=== PATIENT | female | born 1935 | race Hispanic/Latino ===

== ENCOUNTER 2020-03-20 00:01 | Inpatient (IN) | payer MEDICARE ==
[~2020-03-20] VITALS: Ht 144.8 cm; Wt 58.6 kg
[2020-03-20] VITALS (23 sets, daily range): BP systolic 120–152; BP diastolic 47–69
[2020-03-20] MEDS ORDERED: MORPHINE 2 MG SYG ONE ×2 (00:27→03:09)
[2020-03-20 01:34] LABS: BASOPHILS % (AUTO) 0.2 % (0.0-5.0); EOSINOPHILS % (AUTO) 0.1 % (0.0-8.0); HEMATOCRIT 33.1 % (36-48); MEAN CORPUSCULAR HEMOGLOBIN 29.8 pg (27.0-33.0); MEAN CORPUSCULAR HGB CONC 32.6 g/dL (32.0-36.0); MEAN CORPUSCULAR VOLUME 91.4 fL (79-99); MONOCYTES % (AUTO) 6.6 % (3.0-13.0); NEUTROPHILS % (AUTO) 87.5 % (40.0-77.0); PLATELET COUNT (AUTO) 159 K/uL (130-400); RED BLOOD CELL COUNT(AUTO) 3.62 MIL/uL (4.00-5.50); RED CELL DISTRIBUTION WIDTH 14.1 % (11.0-15.5); WHITE BLOOD COUNT (AUTO) 13.3 K/uL (4.8-10.8)
[2020-03-20 01:48] LABS: INR 1.03 (0.85-1.15)
[2020-03-20 01:50] LABS: PARTIAL THROMBOPLASTIN TIME 23.2 SEC (26.3-35.5)
[2020-03-20 01:53] LABS: CREATININE 0.7 mg/dL (0.5-1.5); POTASSIUM 4.6 mmol/L (3.5-5.1)
[2020-03-20 01:58] LABS: ALBUMIN 3.3 g/dL (3.5-5.0); BILIRUBIN,TOTAL 0.6 mg/dL (0.2-1.0); TOTAL PROTEIN, SERUM 7.2 g/dL (6.0-8.3)
[2020-03-20 02:04] LABS: APPEARANCE,URINE Cloudy (CLEAR); BILIRUBIN,URINE Negative (NEGATIVE); COLOR,URINE Yellow (YELLOW); GLUCOSE, URINE (UA) Negative (NEGATIVE); KETONES,URINE Negative (NEGATIVE); LEUKOCYTE ESTERASE ,URINE Small (NEGATIVE); NITRATE,URINE Positive (NEGATIVE); OCCULT BLOOD,URINE Negative (NEGATIVE); PROTEIN,URINE POS 1+ mg/dL (NEGATIVE)
[2020-03-20] MEDS ORDERED: ONDANSETRON 4MG INJ IV PRN (02:15)
[2020-03-20] MEDS ORDERED: 0.9%NACL 1000ML 1,000 ML IV SCH (02:15)
[2020-03-20] MEDS ORDERED: LACTULOSE 20 GM/30 ML UDCUP PO PRN (02:15)
[2020-03-20] MEDS ORDERED: ACETAMINOPHEN 325 MG TAB PO PRN ×2 (02:15)
[2020-03-20 02:23] LABS: BACTERIA,URINE Many /HPF (None Seen); RBC,URINE None Seen /HPF (0-1)
[2020-03-20] MEDS ORDERED: CEFTRIAXONE 1G VIAL IVP SCH (02:30)
[2020-03-20] MEDS ORDERED: ONDANSETRON 4MG INJ ONE ×2 (03:09→15:29)
[2020-03-20] MEDS ORDERED: CEFTRIAXONE 1G VIAL ONE (04:41)
[2020-03-20] MEDS: FAMOTIDINE 20MG VIAL IV SCH ×2 (09:15→20:56)
[2020-03-20] MEDS: MORPHINE 2 MG SYG IV PRN (11:38)
[2020-03-20] MEDS ORDERED: MIDAZOLAM HCL 1 MG/ML 2ML VIAL ONE (13:53)
[2020-03-20] MEDS ORDERED: PROPOFOL 10 MG/ML 20ML VIAL IV ONE (13:57)
[2020-03-20] MEDS ORDERED: ROCURONIUM 10MG/1ML SYR 10 MG/ML ML ONE (13:57)
[2020-03-20] MEDS ORDERED: EPHEDRINE SULFATE 50 MG/ML AMPULE ONE (14:16)
[2020-03-20] MEDS ORDERED: GLYCOPYRROLATE 1 MG/5 ML SYRINGE ONE (15:27)
[2020-03-20] MEDS ORDERED: NEOSTIGMINE 5MG/5ML SYR IV ONE (15:28)
[2020-03-20] MEDS ORDERED: FENTANYL CITRATE PF 50 MCG/1 ML 2ML VIAL ONE (15:32)
[2020-03-20] MEDS ORDERED: TRAMADOL HCL 50 MG TABLET PO PRN (15:45)
[2020-03-20] MEDS ORDERED: CALCIUM CARB 500MG PO PRN (15:45)
[2020-03-20] MEDS: 0.9%NACL 1000ML 1,000 ML IV SCH (15:45)
[2020-03-20] MEDS ORDERED: POTASSIUM CHLORIDE 10% ELIXIR 20 MEQ/15 ML UDCUP PO PRN (15:45)
[2020-03-20] MEDS ORDERED: DiphenhydrAMINE HCL 50 MG/ML VIAL IVP PRN (15:45)
[2020-03-20] MEDS: ACETAMINOPHEN 500 MG TABLET PO SCH ×2 (15:45→23:45)
[2020-03-20] MEDS ORDERED: FERROUS FUMARATE 324 MG TABLET PO PRN (15:45)
[2020-03-20] MEDS ORDERED: POTASSIUM CHLORIDE 20MEQ/100ML 100 ML IV PRN (15:45)
[2020-03-20] MEDS ORDERED: DIPHENHYDRAMINE HCL 25 MG CAPSULE PO PRN (15:45)
[2020-03-20] MEDS ORDERED: IBUP-2076 PO (18:42)
[2020-03-20] MEDS ORDERED: ENAL20TA18 PO (18:42)
[2020-03-20] MEDS ORDERED: SERT-439 PO (18:42)
[2020-03-20] MEDS ORDERED: CEFAZOLIN 3GM /D5W 100ML 100 ML IV SCH (20:45)
[2020-03-20] MEDS: CEFAZOLIN SODIUM 1 GM VIAL IVP SCH (20:56)
[2020-03-21] MEDS: 0.9%NACL 1000ML 1,000 ML IV SCH ×2 (01:45→11:45)
[2020-03-21] MEDS: CEFAZOLIN SODIUM 1 GM VIAL IVP SCH (03:29)
[2020-03-21] MEDS: OXYCODONE HCL 5 MG TAB PO PRN ×2 (03:31→23:25)
[2020-03-21 04:03] VITALS: BP 111/60
[2020-03-21 05:40] LABS: BASOPHILS % (AUTO) 0.1 % (0.0-5.0); EOSINOPHILS % (AUTO) 0.1 % (0.0-8.0); HEMATOCRIT 24.3 % (36-48); LYMPHOCYTES % (AUTO) 10.4 % (21.0-51.0); MEAN CORPUSCULAR HEMOGLOBIN 29.7 pg (27.0-33.0); MEAN CORPUSCULAR HGB CONC 31.7 g/dL (32.0-36.0); MEAN CORPUSCULAR VOLUME 93.8 fL (79-99); MONOCYTES % (AUTO) 11.5 % (3.0-13.0); NEUTROPHILS % (AUTO) 77.4 % (40.0-77.0); PLATELET COUNT (AUTO) 135 K/uL (130-400); RED BLOOD CELL COUNT(AUTO) 2.59 MIL/uL (4.00-5.50); RED CELL DISTRIBUTION WIDTH 14.5 % (11.0-15.5); WHITE BLOOD COUNT (AUTO) 8.2 K/uL (4.8-10.8)
[2020-03-21 05:59] LABS: CREATININE 0.8 mg/dL (0.5-1.5); POTASSIUM 3.3 mmol/L (3.5-5.1)
[2020-03-21] MEDS ORDERED: KCL 20 MEQ ERTAB PO SCH (07:45)
[2020-03-21 08:11] VITALS: BP 126/58
[2020-03-21] MEDS: ENOXAPARIN SODIUM 40 MG/0.4 ML SYRINGE SQ SCH (08:32)
[2020-03-21] MEDS: POLYETHYLENE GLYCOL 3350 17 GM POWD.PACK PO SCH (08:32)
[2020-03-21] MEDS: FAMOTIDINE 20MG VIAL IV SCH ×2 (08:34→19:21)
[2020-03-21] MEDS: ACETAMINOPHEN 500 MG TABLET PO SCH ×3 (08:34→23:22)
[2020-03-21] MEDS: MORPHINE 2 MG SYG IV PRN ×2 (08:43→19:22)
[2020-03-21 11:55] VITALS: BP 92/42
[2020-03-21] MEDS: PSYLLIUM SEED 1 EACH PACKET PO SCH (15:15)
[2020-03-21 17:07] VITALS: BP 128/54
[2020-03-21 19:56] VITALS: BP 108/52
[2020-03-21 23:26] VITALS: BP 112/50
[2020-03-21] MEDS: HYDROMORPHONE 2 MG VIAL (2MG/ML) IVP PRN (23:43)
[2020-03-22] MEDS: HYDROMORPHONE 2 MG VIAL (2MG/ML) IVP PRN ×6 (00:40→05:36)
[2020-03-22] MEDS: MORPHINE 2 MG SYG IV PRN (04:03)
[2020-03-22 04:13] VITALS: BP 122/64
[2020-03-22 06:24] LABS: BASOPHILS % (AUTO) 0.3 % (0.0-5.0); EOSINOPHILS % (AUTO) 3.8 % (0.0-8.0); HEMATOCRIT 22.6 % (36-48); LYMPHOCYTES % (AUTO) 20.5 % (21.0-51.0); MEAN CORPUSCULAR HEMOGLOBIN 29.6 pg (27.0-33.0); MEAN CORPUSCULAR HGB CONC 31.4 g/dL (32.0-36.0); MEAN CORPUSCULAR VOLUME 94.2 fL (79-99); NEUTROPHILS % (AUTO) 63.7 % (40.0-77.0); PLATELET COUNT (AUTO) 138 K/uL (130-400); RED CELL DISTRIBUTION WIDTH 14.6 % (11.0-15.5); WHITE BLOOD COUNT (AUTO) 6.1 K/uL (4.8-10.8)
[2020-03-22 06:34] LABS: CREATININE 0.7 mg/dL (0.5-1.5); MAGNESIUM 2.3 mg/dL (1.80-2.40); POTASSIUM 3.8 mmol/L (3.5-5.1)
[2020-03-22 08:04] VITALS: BP 113/67
[2020-03-22] MEDS: FAMOTIDINE 20MG VIAL IV SCH ×2 (08:39→19:19)
[2020-03-22] MEDS: ACETAMINOPHEN 500 MG TABLET PO SCH ×3 (08:40→23:45)
[2020-03-22] MEDS: OXYCODONE HCL 5 MG TAB PO PRN ×2 (08:41→12:19)
[2020-03-22] MEDS: ENOXAPARIN SODIUM 40 MG/0.4 ML SYRINGE SQ SCH (08:42)
[2020-03-22] MEDS: POLYETHYLENE GLYCOL 3350 17 GM POWD.PACK PO SCH (08:42)
[2020-03-22] MEDS ORDERED: IRON SUCROSE COMPLEX 100 MG in 0.9%NACL 50ML 50 ML IV SCH (09:00)
[2020-03-22] MEDS ORDERED: COMPOUND IV MISC 1 EACH IVSOLN MISC PRN (09:00)
[2020-03-22] MEDS: CEPHALEXIN 500 MG CAPSULE PO SCH ×2 (09:57→19:19)
[2020-03-22 11:16] VITALS: BP 124/56
[2020-03-22] MEDS: PSYLLIUM SEED 1 EACH PACKET PO SCH (12:00)
[2020-03-22 12:19] LABS: HEMATOCRIT 23.4 % (36-48)
[2020-03-22] MEDS ORDERED: BISACODYL 5 MG TABLET.DR PO PRN (15:45)
[2020-03-22 16:06] VITALS: BP 126/50
[2020-03-22 19:00] VITALS: BP 141/70
[2020-03-23] VITALS (8 sets, daily range): BP systolic 118–143; BP diastolic 56–68
[2020-03-23 04:58] LABS: BASOPHILS % (AUTO) 0.5 % (0.0-5.0); EOSINOPHILS % (AUTO) 4.9 % (0.0-8.0); MEAN CORPUSCULAR HEMOGLOBIN 29.6 pg (27.0-33.0); MEAN CORPUSCULAR HGB CONC 31.7 g/dL (32.0-36.0); MEAN CORPUSCULAR VOLUME 93.1 fL (79-99); MONOCYTES % (AUTO) 9.8 % (3.0-13.0); NEUTROPHILS % (AUTO) 59.1 % (40.0-77.0); PLATELET COUNT (AUTO) 159 K/uL (130-400); RED BLOOD CELL COUNT(AUTO) 2.47 MIL/uL (4.00-5.50); RED CELL DISTRIBUTION WIDTH 14.5 % (11.0-15.5); WHITE BLOOD COUNT (AUTO) 6.4 K/uL (4.8-10.8)
[2020-03-23 05:27] LABS: CREATININE 0.6 mg/dL (0.5-1.5); POTASSIUM 3.2 mmol/L (3.5-5.1)
[2020-03-23] MEDS: KCL 20 MEQ ERTAB PO PRN ×4 (06:42→19:48)
[2020-03-23] MEDS: MORPHINE 2 MG SYG IV PRN ×2 (06:58→23:04)
[2020-03-23] MEDS: ACETAMINOPHEN 500 MG TABLET PO SCH ×4 (07:45→23:04)
[2020-03-23] MEDS: OXYCODONE HCL 5 MG TAB PO PRN (08:01)
[2020-03-23] MEDS: POLYETHYLENE GLYCOL 3350 17 GM POWD.PACK PO SCH (08:02)
[2020-03-23] MEDS: ENOXAPARIN SODIUM 40 MG/0.4 ML SYRINGE SQ SCH (08:02)
[2020-03-23] MEDS: FAMOTIDINE 20MG VIAL IV SCH ×2 (08:02→19:49)
[2020-03-23] MEDS: SERTRALINE HCL 50 MG TABLET PO SCH (08:02)
[2020-03-23] MEDS: ENALAPRIL MALEATE 10 MG TABLET PO SCH (10:16)
[2020-03-23] MEDS: CEPHALEXIN 500 MG CAPSULE PO SCH ×2 (10:16→19:49)
[2020-03-23] MEDS: PSYLLIUM SEED 1 EACH PACKET PO SCH (11:46)
[2020-03-23] MEDS ORDERED: BISACODYL 10 MG SUPP.RECT RC PRN (15:45)
[2020-03-24 04:18] VITALS: BP 155/79
[2020-03-24 04:26] LABS: BASOPHILS % (AUTO) 0.4 % (0.0-5.0); EOSINOPHILS % (AUTO) 4.4 % (0.0-8.0); LYMPHOCYTES % (AUTO) 18.8 % (21.0-51.0); MEAN CORPUSCULAR HEMOGLOBIN 29.9 pg (27.0-33.0); MEAN CORPUSCULAR HGB CONC 32.5 g/dL (32.0-36.0); MONOCYTES % (AUTO) 8.9 % (3.0-13.0); NEUTROPHILS % (AUTO) 62.8 % (40.0-77.0); NUCLEATED RED BLOOD CELLS 0.4 % (0.0-0.19); PLATELET COUNT (AUTO) 189 K/uL (130-400); RED BLOOD CELL COUNT(AUTO) 2.61 MIL/uL (4.00-5.50); WHITE BLOOD COUNT (AUTO) 9.4 K/uL (4.8-10.8)
[2020-03-24 04:50] LABS: CREATININE 0.5 mg/dL (0.5-1.5); POTASSIUM 3.8 mmol/L (3.5-5.1)
[2020-03-24] MEDS: OXYCODONE HCL 5 MG TAB PO PRN ×2 (06:40→20:08)
[2020-03-24 08:02] VITALS: BP 147/64
[2020-03-24] MEDS: POLYETHYLENE GLYCOL 3350 17 GM POWD.PACK PO SCH (09:00)
[2020-03-24] MEDS: ENALAPRIL MALEATE 10 MG TABLET PO SCH (09:00)
[2020-03-24] MEDS: ACETAMINOPHEN 500 MG TABLET PO SCH ×3 (09:50→23:50)
[2020-03-24] MEDS: ENOXAPARIN SODIUM 40 MG/0.4 ML SYRINGE SQ SCH (09:51)
[2020-03-24] MEDS: CEPHALEXIN 500 MG CAPSULE PO SCH ×2 (09:51→20:10)
[2020-03-24] MEDS: SERTRALINE HCL 50 MG TABLET PO SCH (09:51)
[2020-03-24] MEDS: FAMOTIDINE 20MG VIAL IV SCH ×2 (09:51→20:09)
[2020-03-24 11:52] VITALS: BP 140/67
[2020-03-24] MEDS: PSYLLIUM SEED 1 EACH PACKET PO SCH (12:00)
[2020-03-24 16:59] VITALS: BP 136/66
[2020-03-24 20:29] VITALS: BP 165/75
[2020-03-24 23:39] VITALS: BP 125/55
[2020-03-25 03:51] VITALS: BP 151/73
[2020-03-25 04:06] LABS: BASOPHILS % (AUTO) 0.6 % (0.0-5.0); EOSINOPHILS % (AUTO) 6.8 % (0.0-8.0); HEMATOCRIT 24.1 % (36-48); LYMPHOCYTES % (AUTO) 19.2 % (21.0-51.0); MEAN CORPUSCULAR HEMOGLOBIN 29.8 pg (27.0-33.0); MEAN CORPUSCULAR HGB CONC 32.4 g/dL (32.0-36.0); MONOCYTES % (AUTO) 9.3 % (3.0-13.0); NEUTROPHILS % (AUTO) 53.9 % (40.0-77.0); NUCLEATED RED BLOOD CELLS 0.5 % (0.0-0.19); PLATELET COUNT (AUTO) 209 K/uL (130-400); RED BLOOD CELL COUNT(AUTO) 2.62 MIL/uL (4.00-5.50); RED CELL DISTRIBUTION WIDTH 14.3 % (11.0-15.5); WHITE BLOOD COUNT (AUTO) 9.6 K/uL (4.8-10.8)
[2020-03-25 04:31] LABS: CREATININE 0.5 mg/dL (0.5-1.5); POTASSIUM 3.7 mmol/L (3.5-5.1)
[2020-03-25] MEDS: OXYCODONE HCL 5 MG TAB PO PRN (05:52)
[2020-03-25 08:22] VITALS: BP 144/59
[2020-03-25] MEDS: ACETAMINOPHEN 500 MG TABLET PO SCH ×3 (08:50→23:22)
[2020-03-25] MEDS: POLYETHYLENE GLYCOL 3350 17 GM POWD.PACK PO SCH (08:50)
[2020-03-25] MEDS: FAMOTIDINE 20MG VIAL IV SCH ×2 (08:50→19:40)
[2020-03-25] MEDS: SERTRALINE HCL 50 MG TABLET PO SCH (08:50)
[2020-03-25] MEDS: CEPHALEXIN 500 MG CAPSULE PO SCH ×2 (08:53→19:40)
[2020-03-25] MEDS: ENALAPRIL MALEATE 10 MG TABLET PO SCH (08:56)
[2020-03-25] MEDS: ENOXAPARIN SODIUM 40 MG/0.4 ML SYRINGE SQ SCH (08:56)
[2020-03-25] MEDS: PSYLLIUM SEED 1 EACH PACKET PO SCH (12:00)
[2020-03-25 13:20] VITALS: BP 138/63
[2020-03-25 18:33] VITALS: BP 140/59
[2020-03-25 19:46] VITALS: BP 133/60
[2020-03-26] VITALS (7 sets, daily range): BP systolic 132–168; BP diastolic 51–87
[2020-03-26] MEDS: ACETAMINOPHEN 500 MG TABLET PO SCH ×2 (07:05→16:15)
[2020-03-26] MEDS: POLYETHYLENE GLYCOL 3350 17 GM POWD.PACK PO SCH ×2 (09:00→09:05)
[2020-03-26] MEDS: FAMOTIDINE 20MG VIAL IV SCH ×2 (09:02→22:29)
[2020-03-26] MEDS: SERTRALINE HCL 50 MG TABLET PO SCH (09:04)
[2020-03-26] MEDS: CEPHALEXIN 500 MG CAPSULE PO SCH ×2 (09:04→22:29)
[2020-03-26] MEDS: ENALAPRIL MALEATE 10 MG TABLET PO SCH (09:05)
[2020-03-26] MEDS: ENOXAPARIN SODIUM 40 MG/0.4 ML SYRINGE SQ SCH (09:05)
[2020-03-26] MEDS ORDERED: TRAMADOL HCL 50 MG TABLET PO SCH (09:15)
[2020-03-26] MEDS ORDERED: TRAMADOL HCL 50 MG TABLET ONE (09:58)
[2020-03-26] MEDS: PSYLLIUM SEED 1 EACH PACKET PO SCH (12:00)
[2020-03-27] MEDS: ACETAMINOPHEN 500 MG TABLET PO SCH ×5 (00:06→23:22)
[2020-03-27 04:01] VITALS: BP 131/62
[2020-03-27 06:30] LABS: BASOPHILS % (AUTO) 0.4 % (0.0-5.0); EOSINOPHILS % (AUTO) 4.7 % (0.0-8.0); HEMATOCRIT 25.6 % (36-48); LYMPHOCYTES % (AUTO) 21.1 % (21.0-51.0); MEAN CORPUSCULAR HEMOGLOBIN 29.5 pg (27.0-33.0); MEAN CORPUSCULAR HGB CONC 31.3 g/dL (32.0-36.0); MEAN CORPUSCULAR VOLUME 94.5 fL (79-99); MONOCYTES % (AUTO) 9.2 % (3.0-13.0); NEUTROPHILS % (AUTO) 51.2 % (40.0-77.0); PLATELET COUNT (AUTO) 265 K/uL (130-400); RED BLOOD CELL COUNT(AUTO) 2.71 MIL/uL (4.00-5.50); RED CELL DISTRIBUTION WIDTH 15.3 % (11.0-15.5)
[2020-03-27 07:08] LABS: CREATININE 0.5 mg/dL (0.5-1.5); POTASSIUM 3.4 mmol/L (3.5-5.1)
[2020-03-27 08:16] VITALS: BP 137/52
[2020-03-27] MEDS: CEPHALEXIN 500 MG CAPSULE PO SCH ×2 (08:31→21:30)
[2020-03-27] MEDS: POLYETHYLENE GLYCOL 3350 17 GM POWD.PACK PO SCH (08:31)
[2020-03-27] MEDS: ENOXAPARIN SODIUM 40 MG/0.4 ML SYRINGE SQ SCH (08:31)
[2020-03-27] MEDS: SERTRALINE HCL 50 MG TABLET PO SCH (08:31)
[2020-03-27] MEDS: FAMOTIDINE 20MG VIAL IV SCH ×2 (08:31→21:30)
[2020-03-27] MEDS: ENALAPRIL MALEATE 10 MG TABLET PO SCH (08:43)
[2020-03-27] MEDS ORDERED: KCL 20 MEQ ERTAB PO SCH (10:45)
[2020-03-27] MEDS ORDERED: MORPHINE 2 MG SYG IV SCH (11:00)
[2020-03-27] MEDS ORDERED: MORPHINE 2 MG SYG IVP ONE (11:00)
[2020-03-27] MEDS: PSYLLIUM SEED 1 EACH PACKET PO SCH (12:00)
[2020-03-27 12:50] VITALS: BP 145/46
[2020-03-27 16:45] VITALS: BP 115/50
[2020-03-27 20:39] VITALS: BP 131/46
[2020-03-27] MEDS: ACETAMINOPHEN WITH CODEINE 1 TAB TAB PO PRN (21:29)
[2020-03-27 23:24] VITALS: BP 128/47
[2020-03-28] MEDS ORDERED: MORPHINE 2 MG SYG ONE (00:43)
[2020-03-28 03:49] VITALS: BP 130/55
[2020-03-28] MEDS: ACETAMINOPHEN 500 MG TABLET PO SCH ×3 (07:45→23:45)
[2020-03-28 08:05] VITALS: BP 158/59
[2020-03-28] MEDS: CEPHALEXIN 500 MG CAPSULE PO SCH ×2 (10:01→19:41)
[2020-03-28] MEDS: SERTRALINE HCL 50 MG TABLET PO SCH (10:01)
[2020-03-28] MEDS: ENALAPRIL MALEATE 10 MG TABLET PO SCH (10:02)
[2020-03-28] MEDS: FAMOTIDINE 20MG VIAL IV SCH ×2 (10:02→19:40)
[2020-03-28] MEDS: POLYETHYLENE GLYCOL 3350 17 GM POWD.PACK PO SCH (10:03)
[2020-03-28] MEDS: ENOXAPARIN SODIUM 40 MG/0.4 ML SYRINGE SQ SCH (10:04)
[2020-03-28] MEDS: ACETAMINOPHEN WITH CODEINE 1 TAB TAB PO PRN (10:07)
[2020-03-28 11:34] VITALS: BP 130/56
[2020-03-28] MEDS: PSYLLIUM SEED 1 EACH PACKET PO SCH (12:14)
[2020-03-28 16:05] VITALS: BP 123/51
[2020-03-28] MEDS: MORPHINE 2 MG SYG IVP PRN (19:44)
[2020-03-28 20:02] VITALS: BP 153/55
[2020-03-28 23:25] VITALS: BP 169/56
[2020-03-29] MEDS ORDERED: HYDROMORPHONE 2 MG VIAL (2MG/ML) ONE (00:16)
[2020-03-29] MEDS: MORPHINE 2 MG SYG IVP PRN (01:00)
[2020-03-29] MEDS: HYDROMORPHONE 2 MG VIAL (2MG/ML) IVP PRN ×4 (01:18→04:52)
[2020-03-29 03:50] VITALS: BP 135/51
[2020-03-29 05:21] LABS: BASOPHILS % (AUTO) 0.4 % (0.0-5.0); EOSINOPHILS % (AUTO) 0.4 % (0.0-8.0); HEMATOCRIT 26.6 % (36-48); LYMPHOCYTES % (AUTO) 4.8 % (21.0-51.0); MEAN CORPUSCULAR HEMOGLOBIN 29.9 pg (27.0-33.0); MEAN CORPUSCULAR HGB CONC 31.2 g/dL (32.0-36.0); MEAN CORPUSCULAR VOLUME 95.7 fL (79-99); MONOCYTES % (AUTO) 3.8 % (3.0-13.0); NEUTROPHILS % (AUTO) 86.8 % (40.0-77.0); PLATELET COUNT (AUTO) 278 K/uL (130-400); RED BLOOD CELL COUNT(AUTO) 2.78 MIL/uL (4.00-5.50); RED CELL DISTRIBUTION WIDTH 16.2 % (11.0-15.5); WHITE BLOOD COUNT (AUTO) 19.6 K/uL (4.8-10.8)
[2020-03-29 05:35] LABS: CREATININE 0.6 mg/dL (0.5-1.5); POTASSIUM 3.5 mmol/L (3.5-5.1)
[2020-03-29] MEDS: KCL 20 MEQ ERTAB PO PRN (05:55)
[2020-03-29 08:00] VITALS: BP 130/51
[2020-03-29 08:35] LABS: BASOPHILS % (AUTO) 0.4 % (0.0-5.0); EOSINOPHILS % (AUTO) 0.7 % (0.0-8.0); HEMATOCRIT 26.2 % (36-48); MEAN CORPUSCULAR HEMOGLOBIN 30.4 pg (27.0-33.0); MEAN CORPUSCULAR HGB CONC 32.1 g/dL (32.0-36.0); MEAN CORPUSCULAR VOLUME 94.9 fL (79-99); MONOCYTES % (AUTO) 4.5 % (3.0-13.0); NEUTROPHILS % (AUTO) 85.2 % (40.0-77.0); PLATELET COUNT (AUTO) 274 K/uL (130-400); RED BLOOD CELL COUNT(AUTO) 2.76 MIL/uL (4.00-5.50); RED CELL DISTRIBUTION WIDTH 16.4 % (11.0-15.5)
[2020-03-29] MEDS: ENALAPRIL MALEATE 10 MG TABLET PO SCH (08:41)
[2020-03-29] MEDS: FAMOTIDINE 20MG VIAL IV SCH ×2 (08:41→21:01)
[2020-03-29] MEDS: ENOXAPARIN SODIUM 40 MG/0.4 ML SYRINGE SQ SCH (08:42)
[2020-03-29] MEDS: CEPHALEXIN 500 MG CAPSULE PO SCH (08:42)
[2020-03-29] MEDS: ACETAMINOPHEN 500 MG TABLET PO SCH ×3 (08:42→23:28)
[2020-03-29] MEDS: SERTRALINE HCL 50 MG TABLET PO SCH (08:42)
[2020-03-29] MEDS: POLYETHYLENE GLYCOL 3350 17 GM POWD.PACK PO SCH (08:43)
[2020-03-29 08:59] LABS: ALBUMIN 2.5 g/dL (3.5-5.0); BILIRUBIN,TOTAL 0.7 mg/dL (0.2-1.0); CREATININE 0.7 mg/dL (0.5-1.5); POTASSIUM 3.9 mmol/L (3.5-5.1); TOTAL PROTEIN, SERUM 6.4 g/dL (6.0-8.3)
[2020-03-29 11:03] VITALS: BP 138/47
[2020-03-29] MEDS ORDERED: LEVOFLOXACIN 750 MG/D5W 150 ML 150 ML IV SCH ×2 (11:45→21:00)
[2020-03-29] MEDS: PSYLLIUM SEED 1 EACH PACKET PO SCH (12:09)
[2020-03-29] MEDS: ACETAMINOPHEN WITH CODEINE 1 TAB TAB PO PRN (13:47)
[2020-03-29 16:28] VITALS: BP 118/62
[2020-03-29 19:50] VITALS: BP 123/50
[2020-03-29 23:29] VITALS: BP 127/58
[2020-03-30 03:47] LABS: BILIRUBIN,URINE Small (NEGATIVE); COLOR,URINE Dark Yellow (YELLOW); GLUCOSE, URINE (UA) Negative (NEGATIVE); KETONES,URINE 15 mg/dL (NEGATIVE); LEUKOCYTE ESTERASE ,URINE Trace (NEGATIVE); NITRATE,URINE Negative (NEGATIVE); OCCULT BLOOD,URINE Negative (NEGATIVE); PROTEIN,URINE POS 1+ mg/dL (NEGATIVE)
[2020-03-30 03:56] VITALS: BP 111/51
[2020-03-30 04:12] LABS: APPEARANCE,URINE CLEAR (CLEAR); BACTERIA,URINE Few /HPF (None Seen); MUCUS,URINE Moderate LPF (None Seen); RBC,URINE None Seen /HPF (0-1); SQUAMOUS EPITHELIAL CELL,UR Moderate /HPF (0-2)
[2020-03-30 05:30] LABS: BASOPHILS % (AUTO) 0.2 % (0.0-5.0); EOSINOPHILS % (AUTO) 0.1 % (0.0-8.0); HEMATOCRIT 25.3 % (36-48); LYMPHOCYTES % (AUTO) 2.9 % (21.0-51.0); MEAN CORPUSCULAR HEMOGLOBIN 30.2 pg (27.0-33.0); MEAN CORPUSCULAR HGB CONC 31.6 g/dL (32.0-36.0); MEAN CORPUSCULAR VOLUME 95.5 fL (79-99); NEUTROPHILS % (AUTO) 90.5 % (40.0-77.0); PLATELET COUNT (AUTO) 252 K/uL (130-400); RED BLOOD CELL COUNT(AUTO) 2.65 MIL/uL (4.00-5.50); RED CELL DISTRIBUTION WIDTH 16.4 % (11.0-15.5); WHITE BLOOD COUNT (AUTO) 23.8 K/uL (4.8-10.8)
[2020-03-30 06:07] LABS: ALBUMIN 2.3 g/dL (3.5-5.0); BILIRUBIN,TOTAL 0.8 mg/dL (0.2-1.0); CREATININE 0.7 mg/dL (0.5-1.5)
[2020-03-30] MEDS: FAMOTIDINE 20MG VIAL IV SCH ×2 (08:04→20:03)
[2020-03-30] MEDS: ENALAPRIL MALEATE 10 MG TABLET PO SCH (08:04)
[2020-03-30] MEDS: ACETAMINOPHEN 500 MG TABLET PO SCH ×3 (08:04→22:59)
[2020-03-30] MEDS: POLYETHYLENE GLYCOL 3350 17 GM POWD.PACK PO SCH (08:04)
[2020-03-30] MEDS: SERTRALINE HCL 50 MG TABLET PO SCH (08:07)
[2020-03-30] MEDS: ENOXAPARIN SODIUM 40 MG/0.4 ML SYRINGE SQ SCH (08:09)
[2020-03-30 08:41] VITALS: BP 97/56
[2020-03-30 11:22] VITALS: BP 86/43
[2020-03-30 15:59] VITALS: BP 112/52
[2020-03-30] MEDS: PSYLLIUM SEED 1 EACH PACKET PO SCH (15:59)
[2020-03-30] MEDS: ACETAMINOPHEN WITH CODEINE 1 TAB TAB PO PRN (20:05)
[2020-03-30 20:31] VITALS: BP 100/52
[2020-03-30 23:51] VITALS: BP 103/55
[2020-03-31 04:00] VITALS: BP 103/61
[2020-03-31 05:18] LABS: BASOPHILS % (AUTO) 0.4 % (0.0-5.0); EOSINOPHILS % (AUTO) 2.5 % (0.0-8.0); HEMATOCRIT 24.9 % (36-48); LYMPHOCYTES % (AUTO) 16.6 % (21.0-51.0); MEAN CORPUSCULAR HEMOGLOBIN 30.1 pg (27.0-33.0); MEAN CORPUSCULAR HGB CONC 31.3 g/dL (32.0-36.0); MEAN CORPUSCULAR VOLUME 96.1 fL (79-99); MONOCYTES % (AUTO) 10.5 % (3.0-13.0); NEUTROPHILS % (AUTO) 65.8 % (40.0-77.0); PLATELET COUNT (AUTO) 241 K/uL (130-400); RED BLOOD CELL COUNT(AUTO) 2.59 MIL/uL (4.00-5.50); RED CELL DISTRIBUTION WIDTH 16.7 % (11.0-15.5); WHITE BLOOD COUNT (AUTO) 7.5 K/uL (4.8-10.8)
[2020-03-31 05:38] LABS: ALBUMIN 2.3 g/dL (3.5-5.0); BILIRUBIN,TOTAL 0.6 mg/dL (0.2-1.0); CREATININE 0.8 mg/dL (0.5-1.5); POTASSIUM 3.6 mmol/L (3.5-5.1); TOTAL PROTEIN, SERUM 6.1 g/dL (6.0-8.3)
[2020-03-31 08:05] VITALS: BP 112/50
[2020-03-31] MEDS: ENALAPRIL MALEATE 10 MG TABLET PO SCH (09:00)
[2020-03-31] MEDS: POLYETHYLENE GLYCOL 3350 17 GM POWD.PACK PO SCH (09:00)
[2020-03-31] MEDS: ACETAMINOPHEN 500 MG TABLET PO SCH ×2 (10:51→14:56)
[2020-03-31] MEDS: ACETAMINOPHEN WITH CODEINE 1 TAB TAB PO PRN (10:52)
[2020-03-31] MEDS: SERTRALINE HCL 50 MG TABLET PO SCH (10:52)
[2020-03-31] MEDS: FAMOTIDINE 20MG VIAL IV SCH (10:52)
[2020-03-31] MEDS: ENOXAPARIN SODIUM 40 MG/0.4 ML SYRINGE SQ SCH (10:52)
[2020-03-31 11:30] VITALS: BP 104/59
[2020-03-31] MEDS: PSYLLIUM SEED 1 EACH PACKET PO SCH (12:00)
[2020-03-31] MEDS ORDERED: FAMOTIDINE 20MG TAB PO SCH (21:00)
== END 2020-03-31 17:00 | DRG 481 ==
LOC: EDH 00:01 → EDHIP 02:04 → 3AH 08:08
PROVIDERS: ADMIT Family Medicine; ATTEND Family Medicine
PROC: 0QS706Z Reposition Left Upper Femur with Intramedullary Internal Fixation Device, Open Approach (ICD-10-PCS; principal; 2020-03-20 13:56)
DX: S72.142A Displaced intertrochanteric fracture of left femur, initial encounter for closed fracture (principal); N39.0 Urinary tract infection, site not specified; R53.81 Other malaise; Z20.822 Contact with and (suspected) exposure to COVID-19; D72.829 Elevated white blood cell count, unspecified; B96.20 Unspecified Escherichia coli [E. coli] as the cause of diseases classified elsewhere; I10 Essential (primary) hypertension; M81.0 Age-related osteoporosis without current pathological fracture; Y93.89 Activity, other specified; D64.9 Anemia, unspecified; W01.0XXA Fall on same level from slipping, tripping and stumbling without subsequent striking against object, initial encounter; Y92.89 Other specified places as the place of occurrence of the external cause; Y99.8 Other external cause status; Z53.29 Procedure and treatment not carried out because of patient's decision for other reasons
CPT/HCPCS: 36415; 70450; 71045; 71250; 73070; 73502; 73503; 74176; 80048; 80053; 81001; 83735; 85014; 85018; 85025; 85610; 85730; 86850; 86900; 86901; 86923; 87077; 87088; 87186; 87426; 93005; 93970; 97039; G0378; J0690; J0696; J1170; J1650; J1756; J1956; J2250; J2405; J2704; J2710; J3010; J3490; J7030; U0003

== ENCOUNTER 2021-10-25 22:09 | Inpatient (IN) | payer MEDICARE ==
[~2021-10-25] VITALS: Ht 149.9 cm; Wt 67.6 kg
[~2021-10-25 22:09] MED LIST: ENAL20TA18 PO; IBUP-2076 PO; SERT-439 PO
[2021-10-25] MEDS ORDERED: ACETAMINOPHEN 500 MG TABLET PO ONE (23:00)
[2021-10-25] MEDS ORDERED: KETOROLAC 30MG VIAL (30MG/ML) IV ONE (23:00)
[2021-10-25 23:14] LABS: BASOPHILS % (AUTO) 0.1 % (0.0-5.0); EOSINOPHILS % (AUTO) 0.2 % (0.0-8.0); HEMATOCRIT 33.9 % (36-48); MEAN CORPUSCULAR HEMOGLOBIN 29.9 pg (27.0-33.0); MEAN CORPUSCULAR VOLUME 90.4 fL (79-99); MONOCYTES % (AUTO) 7.6 % (3.0-13.0); NEUTROPHILS % (AUTO) 81.1 % (40.0-77.0); PLATELET COUNT (AUTO) 206 K/uL (130-400); RED BLOOD CELL COUNT(AUTO) 3.75 MIL/uL (4.00-5.50); RED CELL DISTRIBUTION WIDTH 15.3 % (11.0-15.5); WHITE BLOOD COUNT (AUTO) 18.6 K/uL (4.8-10.8)
[2021-10-25 23:27] LABS: INR 0.93 (0.85-1.15); PROTHROMBIN TIME 10.2 SEC (9.6-11.6)
[2021-10-25 23:28] LABS: ALBUMIN 3.1 g/dL (3.5-5.0); CREATININE 0.9 mg/dL (0.5-1.5); POTASSIUM 3.7 mmol/L (3.5-5.1); TOTAL PROTEIN, SERUM 6.9 g/dL (6.0-8.3)
[2021-10-26] MEDS ORDERED: 0.9% NACL 500ML IV.SOLN 500 ML IV ONE
[2021-10-26] MEDS ORDERED: ONDANSETRON 4MG INJ IV PRN
[2021-10-26] MEDS ORDERED: HYDROMORPHONE 1 MG INJ IV PRN
[2021-10-26 00:12] LABS: APPEARANCE,URINE CLEAR (CLEAR); BILIRUBIN,URINE NEGATIVE (NEGATIVE); COLOR,URINE YELLOW (YELLOW); GLUCOSE, URINE (UA) NEGATIVE (NEGATIVE); KETONES,URINE 5 mg/dL (NEGATIVE); LEUKOCYTE ESTERASE ,URINE NEGATIVE (NEGATIVE); NITRATE,URINE NEGATIVE (NEGATIVE); OCCULT BLOOD,URINE NEGATIVE (NEGATIVE); PROTEIN,URINE NEGATIVE (NEGATIVE)
[2021-10-26] MEDS: 0.9%NACL 1000ML 1,000 ML IV SCH ×2 (01:43→16:32)
[2021-10-26] MEDS: MORPHINE 2 MG SYG IV PRN (03:05)
[2021-10-26 03:20] VITALS: BP 196/79
[2021-10-26 05:32] LABS: BASOPHILS % (AUTO) 0.3 % (0.0-5.0); EOSINOPHILS % (AUTO) 1.3 % (0.0-8.0); HEMATOCRIT 29.9 % (36-48); LYMPHOCYTES % (AUTO) 13.3 % (21.0-51.0); MEAN CORPUSCULAR HEMOGLOBIN 29.9 pg (27.0-33.0); MEAN CORPUSCULAR HGB CONC 32.4 g/dL (32.0-36.0); MEAN CORPUSCULAR VOLUME 92.3 fL (79-99); MONOCYTES % (AUTO) 7.9 % (3.0-13.0); NEUTROPHILS % (AUTO) 75.6 % (40.0-77.0); PLATELET COUNT (AUTO) 168 K/uL (130-400); RED BLOOD CELL COUNT(AUTO) 3.24 MIL/uL (4.00-5.50); RED CELL DISTRIBUTION WIDTH 15.2 % (11.0-15.5); WHITE BLOOD COUNT (AUTO) 11.9 K/uL (4.8-10.8)
[2021-10-26 05:42] LABS: INR 0.95 (0.85-1.15); PROTHROMBIN TIME 10.4 SEC (9.6-11.6)
[2021-10-26 05:43] LABS: PARTIAL THROMBOPLASTIN TIME 24.2 SEC (26.3-35.5)
[2021-10-26 05:45] LABS: CREATININE 0.8 mg/dL (0.5-1.5); MAGNESIUM 1.8 mg/dL (1.80-2.40); PHOSPHORUS 3.7 mg/dL (2.5-4.9); POTASSIUM 3.3 mmol/L (3.5-5.1)
[2021-10-26 08:00] VITALS: BP 185/90
[2021-10-26] MEDS: FAMOTIDINE 20MG VIAL IV SCH (08:26)
[2021-10-26] MEDS ORDERED: MAGNESIUM 2GM PREMIX 50ML 50 ML IV PRN (09:00)
[2021-10-26] MEDS ORDERED: LIDOCAINE HCL-MPF 1% 2ML VIAL IV PRN (09:00)
[2021-10-26] MEDS ORDERED: POTASSIUM CHLORIDE 20MEQ/100ML 100 ML IV PRN (09:00)
[2021-10-26] MEDS ORDERED: POTASSIUM CHLORIDE 10% ELIXIR 20 MEQ/15 ML UDCUP PO PRN (09:00)
[2021-10-26 11:17] VITALS: BP 145/64
[2021-10-26 16:00] VITALS: BP 181/81
[2021-10-26] MEDS: KCL 20 MEQ ERTAB PO PRN (18:07)
[2021-10-26 20:00] VITALS: BP 184/66
[2021-10-26 21:00] VITALS: BP 155/70
[2021-10-27] VITALS (25 sets, daily range): BP systolic 131–192; BP diastolic 58–82
[2021-10-27] MEDS: MORPHINE 2 MG SYG IV PRN ×3 (00:05→17:10)
[2021-10-27] MEDS: KCL 20 MEQ ERTAB PO PRN (00:05)
[2021-10-27 04:43] LABS: HEMATOCRIT 31.7 % (36-48); MEAN CORPUSCULAR HEMOGLOBIN 29.4 pg (27.0-33.0); MEAN CORPUSCULAR HGB CONC 31.5 g/dL (32.0-36.0); MEAN CORPUSCULAR VOLUME 93.2 fL (79-99); RED BLOOD CELL COUNT(AUTO) 3.4 MIL/uL (4.00-5.50); RED CELL DISTRIBUTION WIDTH 15.6 % (11.0-15.5)
[2021-10-27 04:56] LABS: CREATININE 0.6 mg/dL (0.5-1.5); POTASSIUM 4.4 mmol/L (3.5-5.1)
[2021-10-27] MEDS: FAMOTIDINE 20MG VIAL IV SCH (08:28)
[2021-10-27] MEDS ORDERED: METOPROLOL TARTRATE 1 MG/ML 5ML VIAL IV PRN (10:00)
[2021-10-27] MEDS ORDERED: PROPOFOL 10 MG/ML 20ML VIAL IV ONE (13:32)
[2021-10-27] MEDS ORDERED: SUCCINYLCHOLINE CHLORIDE 20 MG/ML 10 ML VIAL ONE (13:32)
[2021-10-27] MEDS ORDERED: MIDAZOLAM HCL 1 MG/ML 2ML VIAL ONE (13:32)
[2021-10-27] MEDS ORDERED: ROCURONIUM 10MG/1ML SYR 10 MG/ML ML ONE ×2 (13:32→13:34)
[2021-10-27] MEDS ORDERED: FENTANYL CITRATE PF 50 MCG/1 ML 2ML VIAL ONE (13:33)
[2021-10-27] MEDS ORDERED: DEXAMETHASONE SOD PHOSPHATE 10MG/ML 1ML VIAL ONE (13:43)
[2021-10-27] MEDS ORDERED: EPHEDRINE SULFATE 50 MG/ML AMPULE ONE (14:06)
[2021-10-27] MEDS ORDERED: GLYCOPYRROLATE 1 MG/5 ML SYRINGE ONE (15:10)
[2021-10-27] MEDS ORDERED: NEOSTIGMINE 5MG/5ML SYR IV ONE (15:10)
[2021-10-27] MEDS: KETOROLAC 30MG VIAL (30MG/ML) IVP PRN (23:42)
[2021-10-28] MEDS ORDERED: CEFAZOLIN SODIUM 1 GM VIAL ONE (00:29)
[2021-10-28] MEDS: CEFAZOLIN SODIUM 1 GM VIAL IVP SCH ×3 (00:39→15:45)
[2021-10-28 03:30] VITALS: BP 131/59
[2021-10-28 04:47] LABS: MEAN CORPUSCULAR HEMOGLOBIN 29.5 pg (27.0-33.0); MEAN CORPUSCULAR HGB CONC 32.4 g/dL (32.0-36.0); MEAN CORPUSCULAR VOLUME 90.9 fL (79-99); RED BLOOD CELL COUNT(AUTO) 3.19 MIL/uL (4.00-5.50); RED CELL DISTRIBUTION WIDTH 14.9 % (11.0-15.5)
[2021-10-28 05:01] LABS: CREATININE 0.7 mg/dL (0.5-1.5); POTASSIUM 4.7 mmol/L (3.5-5.1)
[2021-10-28 07:10] VITALS: BP 145/53
[2021-10-28] MEDS: FAMOTIDINE 20MG VIAL IV SCH (08:20)
[2021-10-28] MEDS: ENOXAPARIN SODIUM 30 MG/0.3 ML SQ SCH (08:20)
[2021-10-28 11:10] VITALS: BP 138/59
[2021-10-28 15:15] VITALS: BP 142/48
[2021-10-28] MEDS: KETOROLAC 30MG VIAL (30MG/ML) IVP PRN (15:46)
[2021-10-28] MEDS: MORPHINE 2 MG SYG IV PRN (20:15)
[2021-10-28 20:34] VITALS: BP 134/49
[2021-10-28 23:26] VITALS: BP 132/60
[2021-10-29] MEDS: KETOROLAC 30MG VIAL (30MG/ML) IVP PRN (03:39)
[2021-10-29 04:00] LABS: HEMATOCRIT 27.2 % (36-48); MEAN CORPUSCULAR HGB CONC 32.4 g/dL (32.0-36.0); MEAN CORPUSCULAR VOLUME 92.8 fL (79-99); NUCLEATED RED BLOOD CELLS 0.2 % (0.0-0.19); RED BLOOD CELL COUNT(AUTO) 2.93 MIL/uL (4.00-5.50); RED CELL DISTRIBUTION WIDTH 15.5 % (11.0-15.5); WHITE BLOOD COUNT (AUTO) 8.2 K/uL (4.8-10.8)
[2021-10-29 04:12] LABS: POTASSIUM 3.9 mmol/L (3.5-5.1)
[2021-10-29 04:13] LABS: CREATININE 0.7 mg/dL (0.5-1.5)
[2021-10-29 04:28] VITALS: BP 160/61
[2021-10-29 07:10] VITALS: BP 168/61
[2021-10-29] MEDS: FAMOTIDINE 20MG VIAL IV SCH (10:20)
[2021-10-29] MEDS: CEPHALEXIN 500 MG CAPSULE PO SCH ×2 (10:20→21:58)
[2021-10-29] MEDS: ENOXAPARIN SODIUM 30 MG/0.3 ML SQ SCH (10:21)
[2021-10-29] MEDS: MORPHINE 2 MG SYG IV PRN ×2 (10:21→18:48)
[2021-10-29] MEDS: LISINOPRIL 10 MG TABLET PO SCH (10:27)
[2021-10-29 11:10] VITALS: BP 120/75
[2021-10-29 15:10] VITALS: BP 153/66
[2021-10-29 20:27] VITALS: BP 133/48
[2021-10-30 00:01] VITALS: BP 167/58
[2021-10-30] MEDS: ACETAMINOPHEN WITH CODEINE 1 TAB TAB PO PRN ×3 (01:05→21:21)
[2021-10-30] MEDS: KETOROLAC 30MG VIAL (30MG/ML) IVP PRN (02:08)
[2021-10-30 04:38] VITALS: BP 148/57
[2021-10-30] MEDS: LISINOPRIL 10 MG TABLET PO SCH (07:39)
[2021-10-30] MEDS: CEPHALEXIN 500 MG CAPSULE PO SCH ×2 (07:39→21:16)
[2021-10-30] MEDS: FAMOTIDINE 20MG TAB PO SCH ×2 (07:39→21:15)
[2021-10-30] MEDS: SENNOSIDES 8.6 MG TABLET PO SCH (07:39)
[2021-10-30] MEDS: ENOXAPARIN SODIUM 30 MG/0.3 ML SQ SCH (07:41)
[2021-10-30 08:00] VITALS: BP 122/64
[2021-10-30 12:00] VITALS: BP 104/52
[2021-10-30 16:00] VITALS: BP 162/65
[2021-10-30] MEDS ORDERED: ACETAMINOPHEN WITH CODEINE 1 TAB TAB PO PRN (18:30)
[2021-10-30 21:11] VITALS: BP 139/64
[2021-10-31 00:13] VITALS: BP 115/59
[2021-10-31 04:10] VITALS: BP 117/62
[2021-10-31 04:10] LABS: BASOPHILS % (AUTO) 0.7 % (0.0-5.0); EOSINOPHILS % (AUTO) 3.9 % (0.0-8.0); HEMATOCRIT 27.4 % (36-48); LYMPHOCYTES % (AUTO) 17.3 % (21.0-51.0); MEAN CORPUSCULAR HEMOGLOBIN 29.8 pg (27.0-33.0); MEAN CORPUSCULAR HGB CONC 32.1 g/dL (32.0-36.0); MEAN CORPUSCULAR VOLUME 92.9 fL (79-99); MONOCYTES % (AUTO) 8.3 % (3.0-13.0); NEUTROPHILS % (AUTO) 61.4 % (40.0-77.0); NUCLEATED RED BLOOD CELLS 0.2 % (0.0-0.19); PLATELET COUNT (AUTO) 171 K/uL (130-400); RED BLOOD CELL COUNT(AUTO) 2.95 MIL/uL (4.00-5.50); RED CELL DISTRIBUTION WIDTH 15.5 % (11.0-15.5); WHITE BLOOD COUNT (AUTO) 8.2 K/uL (4.8-10.8)
[2021-10-31 04:23] LABS: CREATININE 0.6 mg/dL (0.5-1.5); POTASSIUM 3.9 mmol/L (3.5-5.1)
[2021-10-31 08:00] VITALS: BP 166/70
[2021-10-31] MEDS: KETOROLAC 30MG VIAL (30MG/ML) IVP PRN (09:19)
[2021-10-31] MEDS: ENOXAPARIN SODIUM 30 MG/0.3 ML SQ SCH (09:21)
[2021-10-31] MEDS: FLUOXETINE HCL 10 MG CAPSULE PO SCH (09:21)
[2021-10-31] MEDS: LISINOPRIL 10 MG TABLET PO SCH (09:22)
[2021-10-31] MEDS: CEPHALEXIN 500 MG CAPSULE PO SCH ×2 (09:22→21:44)
[2021-10-31] MEDS: FAMOTIDINE 20MG TAB PO SCH ×2 (09:22→21:44)
[2021-10-31] MEDS: SENNOSIDES 8.6 MG TABLET PO SCH (09:22)
[2021-10-31 11:45] VITALS: BP 130/50
[2021-10-31 16:00] VITALS: BP 155/75
[2021-10-31 20:34] VITALS: BP 146/73
[2021-10-31] MEDS: ACETAMINOPHEN WITH CODEINE 1 TAB TAB PO PRN (21:46)
[2021-11-01 00:19] VITALS: BP 120/57
[2021-11-01 04:56] VITALS: BP 138/60
[2021-11-01 08:00] VITALS: BP 165/87
[2021-11-01] MEDS: CEPHALEXIN 500 MG CAPSULE PO SCH (08:49)
[2021-11-01] MEDS: SENNOSIDES 8.6 MG TABLET PO SCH (08:49)
[2021-11-01] MEDS: FAMOTIDINE 20MG TAB PO SCH (08:49)
[2021-11-01] MEDS: FLUOXETINE HCL 10 MG CAPSULE PO SCH (08:49)
[2021-11-01] MEDS: LISINOPRIL 10 MG TABLET PO SCH (08:50)
[2021-11-01] MEDS: ENOXAPARIN SODIUM 30 MG/0.3 ML SQ SCH (08:52)
[2021-11-01] MEDS: ACETAMINOPHEN WITH CODEINE 1 TAB TAB PO PRN (09:25)
[2021-11-01 11:51] VITALS: BP 139/54
== END 2021-11-01 14:25 | DRG 482 ==
LOC: EDH 22:09 → EDHIP 23:45 → 4AH 10-26 04:17
PROVIDERS: ADMIT Hospitalist; ATTEND Hospitalist
PROC: 0QS606Z Reposition Right Upper Femur with Intramedullary Internal Fixation Device, Open Approach (ICD-10-PCS; principal; 2021-10-27 13:30)
DX: S72.141A Displaced intertrochanteric fracture of right femur, initial encounter for closed fracture (principal); D64.9 Anemia, unspecified; W18.39XA Other fall on same level, initial encounter; Z20.822 Contact with and (suspected) exposure to COVID-19; E78.5 Hyperlipidemia, unspecified; I10 Essential (primary) hypertension; F43.22 Adjustment disorder with anxiety; D72.829 Elevated white blood cell count, unspecified; E78.00 Pure hypercholesterolemia, unspecified; F32.A Depression, unspecified; M81.0 Age-related osteoporosis without current pathological fracture; Y93.89 Activity, other specified; Y92.89 Other specified places as the place of occurrence of the external cause; Y99.8 Other external cause status
CPT/HCPCS: 36415; 71045; 73502; 73503; 80048; 80053; 81003; 83735; 84100; 85025; 85027; 85610; 85730; 86850; 86900; 86901; 87635; 93005; 97039; G0378; J0330; J0690; J1100; J1170; J1650; J1885; J2250; J2405; J2704; J2710; J3010; J3475; J3490; J7030